=== PATIENT | male | born 1930 | race Caucasian/White ===

== ENCOUNTER 2018-02-05 19:27 | Inpatient (IN) | payer MEDICAID ==
[~2018-02-05] VITALS: Ht 167.6 cm; Wt 78.0 kg
[~2018-02-05 19:27] MED LIST: COZ50 PO; GLU500 PO; QVAR0.04 MG/Ac IH; [UNRECOGNIZED DRUG - OTHER] PO
[2018-02-05 19:28] VITALS: Ht 167.6 cm; Wt 78.0 kg
[2018-02-05 20:28] LABS: BASOPHIL % 0.5 % (0-2); PLATELET COUNT 217 x10^3mcL (130-400); RED CELL DISTRIBUTION WIDTH 13.9 % (11.5-14.5)
[2018-02-05] MEDS ORDERED: LOSARTAN POTASS50 M1 PO (20:37)
[2018-02-05] MEDS ORDERED: METFORMIN HCL850 MG PO (20:37)
[2018-02-05] MEDS ORDERED: ASPIR 8181 MG PO (20:38)
[2018-02-05] MEDS ORDERED: ISOSORBIDE MONO30 MG PO (20:38)
[2018-02-05] MEDS ORDERED: NOR10 PO (20:38)
[2018-02-05] MEDS ORDERED: NEU300 PO (20:38)
[2018-02-05] MEDS ORDERED: SIMVASTATIN40 M1 PO (20:38)
[2018-02-05] MEDS ORDERED: BASAGLAR K100 UNIT/1 SQ (20:39)
[2018-02-05] MEDS ORDERED: SPIRIVA18 MC1 INH (20:39)
[2018-02-05] MEDS ORDERED: QVAR REDIHALE10.6 G1 IH (20:39)
[2018-02-05 20:41] LABS: CALCIUM 9.1 mg/dL (8.5-10.1); CARBON DIOXIDE 23.8 mmol/L (21-32); CHLORIDE SERUM 104 mmol/L (98-107); CREATININE SERUM 1.6 mg/dL (0.7-1.3); GLUCOSE SERUM 124 mg/dL (74-106); POTASSIUM SERUM 4.2 mmol/L (3.5-5.1); SODIUM SERUM 138 mmol/L (136-145)
[2018-02-05 20:46] LABS: ALBUMIN 3.5 g/dL (3.4-5.0); ALKALINE PHOSPHATASE 72 U/L (46-116); ALT/SGPT 17 U/L (16-63); AST/SGOT 11 U/L (15-37); BILIRUBIN TOTAL 0.56 mg/dL (0.20-1.00); LIPASE 121 IU/L (73-393); TOTAL PROTEIN, SERUM 7.1 g/dL (6.4-8.2)
[2018-02-05 20:50] LABS: FREE T4 0.87 ng/dL (0.76-1.46)
[2018-02-05 20:58] LABS: microscopic required? YES; urine erythrocyte NEGATIVE (NEGATIVE)
[2018-02-05 22:55] VITALS: BP 111/59
[2018-02-05 23:58] VITALS: BP 111/59
[2018-02-06 05:35] VITALS: BP 136/50
[2018-02-06 06:41] LABS: BASOPHIL % 0.4 % (0-2); PLATELET COUNT 174 x10^3mcL (130-400); RED CELL DISTRIBUTION WIDTH 14.3 % (11.5-14.5)
[2018-02-06 06:52] LABS: ALKALINE PHOSPHATASE 56 U/L (46-116); ALT/SGPT 14 U/L (16-63); AST/SGOT 17 U/L (15-37); BILIRUBIN DIRECT 0.17 mg/dL (0.0-0.2); BILIRUBIN TOTAL 0.81 mg/dL (0.20-1.00); CALCIUM 8.3 mg/dL (8.5-10.1); CHLORIDE SERUM 108 mmol/L (98-107); CREATININE SERUM 1.5 mg/dL (0.7-1.3); GLUCOSE SERUM 88 mg/dL (74-106); SODIUM SERUM 141 mmol/L (136-145); TOTAL PROTEIN, SERUM 6.3 g/dL (6.4-8.2)
[2018-02-06 06:53] LABS: ALBUMIN 2.9 g/dL (3.4-5.0)
[2018-02-06 09:44] VITALS: BP 151/58
[2018-02-06 13:15] VITALS: BP 136/50
[2018-02-06 16:16] VITALS: BP 135/53
[2018-02-06 20:32] VITALS: BP 138/55
[2018-02-06 21:30] VITALS: BP 127/54
[2018-02-07 05:49] VITALS: BP 145/55
[2018-02-07 06:30] LABS: CALCIUM 8.1 mg/dL (8.5-10.1); CARBON DIOXIDE 23.9 mmol/L (21-32); CHLORIDE SERUM 105 mmol/L (98-107); CREATININE SERUM 1.3 mg/dL (0.7-1.3); GLUCOSE SERUM 176 mg/dL (74-106); POTASSIUM SERUM 4.2 mmol/L (3.5-5.1); SODIUM SERUM 139 mmol/L (136-145)
[2018-02-07 07:08] LABS: BASOPHIL % 0.6 % (0-2); PLATELET COUNT 167 x10^3mcL (130-400); RED CELL DISTRIBUTION WIDTH 14.4 % (11.5-14.5)
[2018-02-07] MEDS ORDERED: LEVAQUIN750 MG PO (07:20)
[2018-02-07 09:03] VITALS: BP 141/53
[2018-02-07 11:00] VITALS: BP 141/53
== END 2018-02-07 13:42 | disposition home or self-care (01) | DRG 137 ==
LOC: ED 19:27 → DU 22:21
PROVIDERS: Emergency Medicine; Internal Medicine Pulmonary Disease
DX: J15.8 Pneumonia due to other specified bacteria (principal); N17.9 Acute kidney failure, unspecified; R65.10 Systemic inflammatory response syndrome (SIRS) of non-infectious origin without acute organ dysfunction; E11.65 Type 2 diabetes mellitus with hyperglycemia; J44.9 Chronic obstructive pulmonary disease, unspecified; I10 Essential (primary) hypertension; I25.10 Atherosclerotic heart disease of native coronary artery without angina pectoris; Z79.82 Long term (current) use of aspirin; Z87.891 Personal history of nicotine dependence; Z79.84 Long term (current) use of oral hypoglycemic drugs
CPT/HCPCS: 36600; 82962; 83880; 84439; J0696; J1644; J2543; J7030; J7040; J7613; Q0092

== ENCOUNTER 2019-02-22 10:19 | Inpatient (IN) | payer MEDICAID ==
[~2019-02-22] VITALS: Ht 167.6 cm; Wt 73.2 kg
[~2019-02-22 10:19] MED LIST changes: +ASPIR 8181 MG PO; +BASAGLAR K100 UNIT/1 SQ; +ISOSORBIDE MONO30 MG PO; +LEVAQUIN750 MG PO; +LOSARTAN POTASS50 M1 PO; +METFORMIN HCL850 MG PO; +NEU300 PO; +NOR10 PO; +QVAR REDIHALE10.6 G1 IH; +SIMVASTATIN40 M1 PO; +SPIRIVA18 MC1 INH
--- NOTE | 2019-02-22 10:37 | NUR ---
PT WALKED TO ROOM 11.
[2019-02-22 10:54] LABS: BASOPHIL % 0.3 % (0-2); PLATELET COUNT 263 x10^3mcL (130-400)
--- NOTE | 2019-02-22 11:14 | NUR ---
SEEN BY DR. DOBBS. PT FELT BETTER AFTER ASA AND NITRO GIVEN PO.
[2019-02-22 11:22] LABS: CALCIUM 9.9 mg/dL (8.5-10.1); CARBON DIOXIDE 22.8 mmol/L (21-32); CHLORIDE SERUM 102 mmol/L (98-107); CREATININE SERUM 1.5 mg/dL (0.7-1.3); GLUCOSE SERUM 256 mg/dL (74-106); POTASSIUM SERUM 4.3 mmol/L (3.5-5.1); SODIUM SERUM 138 mmol/L (136-145)
[2019-02-22 11:27] LABS: ALBUMIN 3.9 g/dL (3.4-5.0); ALKALINE PHOSPHATASE 96 U/L (46-116); ALT/SGPT 24 U/L (16-63); AST/SGOT 15 U/L (15-37); BILIRUBIN TOTAL 0.79 mg/dL (0.20-1.00)
[2019-02-22 11:30] LABS: RED CELL DISTRIBUTION WIDTH 14.8 % (11.5-14.5)
--- NOTE | 2019-02-22 11:51 | NUR ---
EKG REPEATED DONE. DR. TONY WAS NOTIFIED RESULT
--- NOTE | 2019-02-22 12:54 | NUR ---
LUNCH TRAY OFFERED TO PT.
--- NOTE | 2019-02-22 13:27 | NUR ---
PT WAS ADMITED TO TELE. 241B. REPORT WAS CALLED AND GIVEN TO PAPA ROBLEDO.
[2019-02-22 14:08] VITALS: BP 214/83
--- NOTE | 2019-02-22 14:25 | NUR ---
RECEIVED PT FROM ER VIA PRIYA ACCOMPANIED WITH NURSE, EMT AND FAMILY MEMBERS, PT SEEN, ALERT AND ORIENTED, DENIES HEADACHE OR DIZZINESS, VIETNAMESE SPEAKING ONLY, BREATHING EVEN AND UNLABORED, LUNG SOUNDS DIMINISHED, ON O2 2L VIA NC WITH SPO2:95%, NO RESP DISTRESS OR SOB NOTED, ON TELE#8 NSR WITH BBB, C/O OF CHEST PAIN 03/22, AMBULATORY WITH STEADY GAIT, ABD DISTENDED BUT SOFT WITH ACTIVE BS, NO BM AT THIS TIME, DENIES ABD PAIN, VOIDING FREELY UPON ADMISSION, DR LIGHT MADE AWARE OF HIGH BP, HEPARIN DRIP INFUSING @ 900 UNITS/HR, PRIMARY NURSE SAADIA AT BEDSIDE WITH CONT NURSING CARE.
[2019-02-22 15:58] VITALS: BP 191/69
[2019-02-22 17:13] VITALS: BP 156/69
--- NOTE | 2019-02-22 18:08 | NUR ---
PT SITTING UPRIGHT IN BED, AOX4, RESP E/U ON NC AT 2 LPM. DENIES CHEST PAIN BUT REPORTED MILD BACK PAIN, TOLERBLE TO PT. NO REQUEST FOR PAIN MEDS AT THIS TIME. IV TO LFA W/ NO SIGN OF INFLITRATION, HEPARIN DRIP INFUSING WELL AT 900 U/HR. BED IN LOWEST POSITION AND CALL LIGHT WITHIN REACH. WILL ENDORSE TO ONCOMING NURSE.
--- NOTE | 2019-02-22 18:47 | NUR ---
RECEIEVED LAB FOR PTT: 69.2 AT THIS TIME. NO CHANGE TO HEPARIN DRIP MADE. NEXT PTT ORDERED FOR 11 PM.
--- NOTE | 2019-02-22 19:45 | NUR ---
RECEIVED PT FROM PREVIOUS SHIFT NURSE. PT AOX4. DENIES BELLO/DIZZINESS AT THIS TIME. TELE #8, SB, WITH OCC. PAUSES. C/O SOME CHEST DISCOMFORT AT THIS TIME. HEPARIN GTT INFUSING AT 900 UNITS/HOUR. DENIES SOB/DIFFICULTY BREATHING, ON 2L NC. IV TO LFA, INTACT AND PATENT. BED IN LOWEST POSITION. CALL LIGHT WITHIN REACH. WILL CONTINUE TO MONITOR.
--- NOTE | 2019-02-22 19:51 | NUR ---
TROP 7.631 AND PER TELE MONITOR, PT HAVING OCCASIONAL PAUSES AND CHANGES IN RHYTHM. PT IN NO ACUTE DISTRESS AT THIS MOMENT. DR. DILLON NOTIFIED. AWAITING CALL BACK FROM .
[2019-02-22 20:00] VITALS: BP 150/54
--- NOTE | 2019-02-22 20:35 | NUR ---
DR. LIGHT PAGED FOR SECOND TIME. AWAITING CALL BACK.
--- NOTE | 2019-02-22 20:50 | NUR ---
PER DR. TAN ORDER STAT EKG, MORPHINE IVP FOR SEVERE PAIN, AND NITRO PASTE Q6 HOURS, D/C ISOSORBIDE.
--- NOTE | 2019-02-22 22:45 | NUR ---
PT C/O ABD PAIN. MEDICATED PER EMAR.
--- NOTE | 2019-02-23 01:13 | NUR ---
PTT 38.9, PER PROTOCOL INCREASE BY 100 UNITS PER HOUR AND REBOLUS 3000U. PT REBOLUSED 3000U AND INFUSION INCREASED TO 1000 UNITS/HOUR. HEPARIN GTT NOW INFUSING AT 10ML/H. VERIFIED BY MEENA ROJAS. NEXT PTT ORDERED FOR 0500. WILL CONTINUE TO MONITOR.
[2019-02-23 05:42] VITALS: BP 140/68
--- NOTE | 2019-02-23 05:54 | NUR ---
PT DENIES ANY CP/ABD PAIN THIS AM. IN NO ACUTE DISTRESS. WILL CONTINUE TO MONITOR.
[2019-02-23 06:38] LABS: BASOPHIL % 0.2 % (0-2); PLATELET COUNT 243 x10^3mcL (130-400)
[2019-02-23 07:03] LABS: RED CELL DISTRIBUTION WIDTH 14.7 % (11.5-14.5)
[2019-02-23 07:07] LABS: ALBUMIN 3.5 g/dL (3.4-5.0); ALKALINE PHOSPHATASE 185 U/L (46-116); ALT/SGPT 999 U/L (16-63); BILIRUBIN TOTAL 0.9 mg/dL (0.20-1.00); CALCIUM 9.3 mg/dL (8.5-10.1); CARBON DIOXIDE 24.3 mmol/L (21-32); CHLORIDE SERUM 100 mmol/L (98-107); CREATININE SERUM 1.3 mg/dL (0.7-1.3); GLUCOSE SERUM 309 mg/dL (74-106); HDL CHOLESTEROL 36 mg/dL (40-60); MAGNESIUM 1.8 mg/dL (1.8-2.4); SODIUM SERUM 137 mmol/L (136-145); TOTAL PROTEIN, SERUM 7.3 g/dL (6.4-8.2); TRIGLYCERIDES 66 mg/dL (<150)
[2019-02-23 07:08] LABS: AST/SGOT 1424 U/L (15-37); CHOLESTEROL 92 mg/dL (<200); CHOLESTEROL/HDL RATIO 2.6
[2019-02-23 07:43] VITALS: BP 123/72
--- NOTE | 2019-02-23 07:49 | NUR ---
RECEIVED CRITICAL TROP 13.419, UP FROM 7.631, DR. LIGHT JEWELRY ENGRAVER PAGED AT THIS TIME. AWAITING CALL BACK.
--- NOTE | 2019-02-23 07:54 | NUR ---
DR. LIGHT RETURN CALL MADE AWARE OF ELEVATED TROP AND ELEVATED LFTS. MADE AWARE PT REPORTED IMPROVEMENT WITH CP, C/O BACK PAIN AND ABD PAIN IN EPIGASTRIC AREA. RECEIVED ORDER FOR PEPCID 10MG PO DAILY.
--- NOTE | 2019-02-23 08:25 | NUR ---
RECEIVED PTT OF 55.3, PER PROTOCOL 1ST THERAPEUDIC WILL SCHEDULE PTT AT 1225. CONT TO MONITOR.
--- NOTE | 2019-02-23 08:33 | NUR ---
DR. AUGUST IN TO SEE PT. UPDATED ON LABS. MADE AWARE THAT DR. LIGHT IS AWARE OF ELEVATED TROP AND HAD STATED PT WOULD REQUIRE TRANSFER FOR ANGIOGRAM. CONT TO MONITOR.
--- NOTE | 2019-02-23 10:28 | NUR ---
MADE AWARE BY CHARGE NURSE, FOUNDATION ASSISTANT ASSISTING WITH TRANSFER ORDER TO [facility]. DR. LIGHT PAGED TO OBTAINE HEPARIN TRANSFER ORDERS AND TO COMSHIRLENE SMITH STILL WANTS PLAVIX TO BE GIVEN SINCE PT WILL REQUIRE ANGIOGRAM. AWAITING CALL BACK.
--- NOTE | 2019-02-23 10:34 | NUR ---
RECEIVED CALL BACK FROM DR. LIGHT PER MD FOX TO HOLD PLAVIX UNTIL FURTHER ORDERS. MADE AWARE OF PLAN TRANSFER TO [facility]. ACCEPTING DR. VARGHESE. PER DR. LIGHT GIVE PT BOLUS OF HEPARIN 3,000 UNITS IVP X1 DOSE PRIOR TO TRANSFER. INQUIRED ABOUT PT'S CONDITION MADE AWARE PT DENIES ANY CP CURRENTLY AND VS REMAIN STABLE. NO FURTHER ORDERS AT THIS TIME.
[2019-02-23 11:48] VITALS: BP 155/72
--- NOTE | 2019-02-23 12:51 | NUR ---
RECEIVED A CALL FROM MADE AWARE THAT PT'S INSURANCE HAD CALLED WITH AUTHORIZATION FOR TRANSFER TO [facility] #[id number]. WITH TRANSPORTWITH [employer] CALL [phone] TO [id number]. AWAITING BED FROM [facility].
--- NOTE | 2019-02-23 13:23 | NUR ---
DR. LIGHT IN TO SEE PT. UPDATED ON MEDICAL CONDITION AND LATEST VITALS. MD MADE AWARE PT RHYTHMS. 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 MD SPOKE WITH FAMILY AND DISCUSSED POC.
--- NOTE | 2019-02-23 14:52 | NUR ---
RECEIVED CALL [facility] CALLED WITH BED FOR PT TO TRANSFER TO ROOM 253A CALL REPORT TO [phone]. [employer] CALLED TO SET UP TRANSPORTATION AND TELEPHONE INFORMATION SUPERVISOR.
[2019-02-23 15:13] VITALS: BP 144/62
--- NOTE | 2019-02-23 15:29 | NUR ---
REPORT CALLED TO QUE[facility] MEENA AT [facility] MADE AWARE OF ALL LABS AND TXS. REPORT CALLED AT [phone]. AWAITING TRANSPORTATION WITH CUSTOMER INSIGHT ANALYST TIME SCHEDULED TO 1600.
[2019-02-23 15:52] VITALS: BP 144/62
--- NOTE | 2019-02-23 16:39 | NUR ---
REPORT GIVEN TO CHARGE NURSE AWAITING TRANSPORT GERIATRIC SOCIAL WORKER. FAMILY AT BEDSIDE.
--- NOTE | 2019-02-23 19:04 | NUR ---
PT TRANSFERED TO [facility] BY [facility] IN NO ACUTE DISTRESS. AWAKE, ALERT AND ORIENTED. NO CHANGES IN VS. NO C/O CHEST PAIN AT THIS TIME. HEPARIN IVP 3000 UNITS GIVEN PER ORDER. HL PATENT. PERSONAL BELONGINGS TAKEN HOME BY FAMILY.
[2019-03-03 11:00] VITALS: Ht 167.6 cm; Wt 73.2 kg
== END 2019-02-23 19:12 | disposition short-term general hospital (02) | DRG 190 ==
LOC: ED 10:19 → DU 12:02
PROVIDERS: Emergency Medicine; ADMIT Internal Medicine Pulmonary Disease
DX: I21.4 Non-ST elevation (NSTEMI) myocardial infarction (principal); E11.22 Type 2 diabetes mellitus with diabetic chronic kidney disease; E11.42 Type 2 diabetes mellitus with diabetic polyneuropathy; J44.9 Chronic obstructive pulmonary disease, unspecified; I44.1 Atrioventricular block, second degree; I13.10 Hypertensive heart and chronic kidney disease without heart failure, with stage 1 through stage 4 chronic kidney disease, or unspecified chronic kidney disease; I25.10 Atherosclerotic heart disease of native coronary artery without angina pectoris; N18.3 Chronic kidney disease, stage 3 (moderate); E78.5 Hyperlipidemia, unspecified; Z68.25 Body mass index [BMI] 25.0-25.9, adult
CPT/HCPCS: 82962; 83880; G0378; J1644; J1815; J2270; J3490; Q0092